=== PATIENT | male | born 1985 | race Two or more races ===

== ENCOUNTER 2019-09-08 18:57 | Emergency (ER) | payer OTHER ==
[~2019-09-08] VITALS: Ht 177.8 cm; Wt 97.7 kg
[2019-09-08] MEDS ORDERED: MORPHINE SULFATE 10 MG/ML SYRINGE IVP ONE (20:00)
[2019-09-08] MEDS ORDERED: SODIUM CHLORIDE 0.9% 1,000 ML IV ONE (20:00)
[2019-09-08 20:19] LABS: BASOPHILS % (AUTO) 0.6 % (0.0-2.0); EOSINOPHILS % (AUTO) 1.1 % (1.0-6.0); HEMATOCRIT 45.2 % (41-53); HEMOGLOBIN 14.9 g/dL (13.5-17.5); LYMPHOCYTES # (AUTO) 2.2 K/uL (1.0-4.8); LYMPHOCYTES % (AUTO) 31.9 % (22.0-44.0); MEAN CORPUSCULAR HEMOGLOBIN 27.6 pg (26.0-34.0); MEAN CORPUSCULAR VOLUME 84 fL (80-100); MONOCYTES # (AUTO) 0.7 K/uL (0.1-1.0); MONOCYTES % (AUTO) 10.8 % (2.0-9.0); NEUTROPHILS # (AUTO) 3.7 K/uL (1.8-7.7); NEUTROPHILS % (AUTO) 55.6 % (40.0-70.0); PLATELET COUNT (AUTO) 194 K/uL (150-450); RED BLOOD CELL COUNT(AUTO) 5.39 MIL/uL (4.50-5.90); RED CELL DISTRIBUTION WIDTH 12.2 % (11.5-14.5)
[2019-09-08 20:25] LABS: ANION GAP 6 mmol/L (8-16); CALCIUM, TOTAL 8.6 mg/dL (8.8-10.5); CARBON DIOXIDE 32 mmol/L (22-29); CHLORIDE 103 mmol/L (98-107); CREATININE 1.42 mg/dL (0.60-1.30); GLOMERULAR FILTR. RATE CALC 57 mL/min (>60); GLUCOSE,RANDOM 81 mg/dL (70-110); POTASSIUM 3.8 mmol/L (3.5-5.1); SODIUM SERUM 141 mmol/L (136-145); UREA NITROGEN, BLOOD 17 mg/dL (7-18)
[2019-09-08] MEDS ORDERED: SODIUM CHLORIDE 0.9% 100 ML ONE (20:29)
[2019-09-08] MEDS ORDERED: IOVERSOL 350 MG/ML 150 ML VIAL ONE (20:30)
[2019-09-08 20:33] LABS: LACTIC ACID 1.1 mmol/L (0.4-2.0)
[2019-09-08 20:49] LABS: ALANINE AMINOTRANSFERASE 75 U/L (12-78); ALBUMIN 3.7 g/dL (3.4-5.0); ALKALINE PHOSPHATASE 117 U/L (46-116); ASPARTATE AMINOTRANSFERASE 30 U/L (15-37); BILIRUBIN,TOTAL 0.5 mg/dL (0.1-1.0); CREATINE KINASE, TOTAL ONLY 429 U/L (39-308)
[2019-09-08 23:09] LABS: APPEARANCE,URINE CLEAR (CLEAR); BILIRUBIN,URINE NEGATIVE (NEGATIVE); GLUCOSE, URINE (UA) NEGATIVE (NEGATIVE); KETONES,URINE NEGATIVE (NEGATIVE); LEUKOCYTE ESTERASE ,URINE NEGATIVE (NEGATIVE); NITRATE,URINE NEGATIVE (NEGATIVE); OCCULT BLOOD,URINE NEGATIVE (NEGATIVE); PH,URINE 6.5 (5.0-8.0); PROTEIN,URINE NEGATIVE (NEGATIVE)
[2019-09-08 23:14] LABS: AMPHET/METH SCREEN,URINE NEGATIVE (NEGATIVE); BARBITURATE SCREEN, URINE NEGATIVE (NEGATIVE); BENZODIAZEPINES SCREEN,URINE NEGATIVE (NEGATIVE); CANNABINOID SCREEN,URINE NEGATIVE (NEGATIVE); COCAINE SCREEN,URINE NEGATIVE (NEGATIVE); METHADONE SCREEN, URINE NEGATIVE (NEGATIVE); OPIATE SCREEN,URINE POSITIVE (NEGATIVE)
[2019-09-08 23:15] LABS: PHENCYCLIDINE SCREEN,URINE NEGATIVE (NEGATIVE)
[2019-09-08 23:20] LABS: BACTERIA,URINE None Seen /HPF (None Seen); RBC,URINE None Seen /HPF (0-2); WBC,URINE None Seen /HPF (0-5)
[2019-09-08 23:21] LABS: SQUAMOUS EPITHELIAL CELL,UR None Seen /LPF (None Seen)
[2019-09-08 23:27] VITALS: BP 116/71
[2019-09-08] MEDS ORDERED: KETOROLAC TROMETHAMINE 30 MG/ML VIAL IVP ONE (23:30)
== END 2019-09-09 02:35 | disposition home or self-care (01) ==
LOC: EMS 18:59
DX: S13.4XXA Sprain of ligaments of cervical spine, initial encounter (principal); S80.01XA Contusion of right knee, initial encounter; S60.221A Contusion of right hand, initial encounter; S00.03XA Contusion of scalp, initial encounter; S70.01XA Contusion of right hip, initial encounter; S20.219A Contusion of unspecified front wall of thorax, initial encounter; V43.52XA Car driver injured in collision with other type car in traffic accident, initial encounter; Y93.89 Activity, other specified; Y92.89 Other specified places as the place of occurrence of the external cause; Y99.8 Other external cause status
CPT/HCPCS: 29505; 36415; 70450; 71260; 72125; 73110; 73130; 73502; 73562; 74177; 80053; 80307; 81001; 82550; 83605; 85025; 96374; 96375; 99284; G0480; J1885; J2270; J7030; J7050; Q9967; 72193; 74160